=== PATIENT | male | born 1955 | race Caucasian/White ===

== ENCOUNTER → 2019-04-28 | Outpatient (CLI) | payer MEDICARE, OTHER ==
[~2019-04-28] MED LIST: CATHETER FLUSH 10 ML SYR IV PRN; REGADENOSON 0.4 MG/5 ML SYR (LEXISCAN) IV ONE
[2019-04-28 09:08] VITALS: BP 128/84
[2019-04-28 09:10] VITALS: BP 115/83
--- NOTE | 2019-04-30 13:49 | Cardiology Stress Test Report ---
Stress Test Report Type of NM Stress Test: Test Type: LEXISCAN 0.4MG/5ML Date of Procedure/Referring: Date of Procedure: Apr 28, 2019 PCP Soheila Davis MD Admitting Physician Jake Jolley MD Indications: Wide-complex tachycardia Baseline Heart Rate: 82 Baseline Blood Pressure: Blood Pressure Systolic: 115 Blood Pressure Diastolic: 83 Baseline EKG: Baseline EKG: sinus rhythm Summary & Conclusion: Summary: The patient was brought to the stress lab after informed consent was taken. Stress test was performed according to the Lexiscan protocol. 0.4 mg of IV Lexiscan was given. Low-grade exercise was performed. Baseline EKG showed sinus rhythm at 82 BPM. Initial blood pressure was 128/84 mmHg. Maximum heart rate was 98 bpm and blood pressure 118/81 mmHg. Patient did not have any chest pain, arrhythmias or ST segment changes during the stress test. 10.44 mCi of Myoview were given for rest imaging and 30.6 mCi of Myoview given for stress imaging. Transient ischemic dilatation score 1.07, EF 48 percent. Normal wall motion. Normal myocardial perfusion imaging during rest and stress. Conclusion: Pharmacological stress test was negative for ischemia. Normal LV function with no wall motion abnormalities. Normal myocardial perfusion imaging during rest and stress. Soheila DAVIS MD Apr 30, 2019 13:49
== END ==
LOC: CARD 07:55
PROVIDERS: ATTEND Internal Medicine Interventional Cardiology
DX: I47.2 Ventricular tachycardia (principal); E78.2 Mixed hyperlipidemia
CPT/HCPCS: 78452; 93017

== ENCOUNTER 2021-05-30 05:43 | Outpatient (CLI) | payer MEDICARE, OTHER ==
[~2021-05-30] VITALS: Ht 185.4 cm; Wt 87.4 kg
== END 2021-05-31 15:31 | disposition home or self-care (01) ==
LOC: PREOP 05:43
PROVIDERS: ATTEND Surgery
DX: Z01.818 Encounter for other preprocedural examination (principal)

== ENCOUNTER 2021-06-17 05:37 | Outpatient (CLI) | payer MEDICARE ==
[~2021-06-17] VITALS: Ht 185.4 cm; Wt 87.4 kg
[2021-06-18] MEDS ORDERED: OMEP20CA18 PO (10:32)
[2021-06-18] MEDS ORDERED: LORA10TA7 PO (10:32)
[2021-06-18] MEDS ORDERED: OFLO5DRO3 OP (10:32)
[2021-06-18] MEDS ORDERED: ATOR10TA66 PO (10:32)
[2021-06-18] MEDS ORDERED: TIZA2CAP9 PO (10:32)
[2021-06-18] MEDS ORDERED: METO50TA7 PO (10:32)
[2021-06-18] MEDS ORDERED: IBUP-1780 PO (10:32)
[2021-06-18] MEDS ORDERED: ZOLP10TA PO (10:32)
[2021-06-18] MEDS ORDERED: ASPI-808 PO (10:32)
== END 2021-06-18 12:26 | disposition home or self-care (01) ==
LOC: PREOP 05:37
PROVIDERS: ATTEND Surgery
DX: Z01.818 Encounter for other preprocedural examination (principal)

== ENCOUNTER 2021-06-24 08:29 | Day surgery (SDC) | payer MEDICARE, OTHER ==
[~2021-06-24] VITALS: Ht 185.4 cm; Wt 87.4 kg
[~2021-06-24 08:29] MED LIST changes: +ASPI-808 PO; +ATOR10TA66 PO; -CATHETER FLUSH 10 ML SYR IV PRN; +IBUP-1780 PO; +LORA10TA7 PO; +METO50TA7 PO; +OFLO5DRO3 OP; +OMEP20CA18 PO; -REGADENOSON 0.4 MG/5 ML SYR (LEXISCAN) IV ONE; +TIZA2CAP9 PO; +ZOLP10TA PO
[2021-06-24 08:40] VITALS: BP 135/88
[2021-06-24] MEDS ORDERED: LACTATED RINGERS 1,000 ML IV STA (08:49)
[2021-06-24] MEDS ORDERED: LACTATED RINGERS 1,000 ML IV ONE (08:55)
[2021-06-24] MEDS ORDERED: meTOprolol 5 MG/5 ML (LOPRESSOR) VIAL IV ONE (09:15)
[2021-06-24] MEDS ORDERED: FAMOTIDINE 20MG/2ML IV (PEPCID) IV ONE (09:15)
[2021-06-24] MEDS ORDERED: meTOprolol 5 MG/5 ML (LOPRESSOR) VIAL ONE (09:24)
[2021-06-24] MEDS ORDERED: FAMOTIDINE 20MG/2ML IV (PEPCID) ONE (09:25)
[2021-06-24] MEDS ORDERED: PROPOFOL INJECTION 50 ML IV ONE (09:31)
[2021-06-24] MEDS ORDERED: MIDAZOLAM 2 MG/2 ML (VERSED) VIAL ONE (09:31)
--- NOTE | 2021-06-24 10:17 | Progress Note-Post Operative ---
Post-Operative Progess Note Surgeon (s)/Data Designer (s) Surgeon JOEY PIERRE DO Data Designer: Bro Sandhu MSIII Pre-Operative Diagnosis + Cologuard Post-Operative Diagnosis Polyp Int hemorrhoids Procedure & Operative Findings Date of Procedure 06/24/21 Procedure Performed/Findings Colon with hot bx PROCEDURE NOTE: After informed consent was obtained, the patient was brought to the endoscopy suite, placed in bed in left lateral decubitus position. He was administered IV sedation by the ORNAMENTAL IRON ERECTOR who then monitored his vitals the entire time, heart rate, blood pressure and pulse ox and the scope was inserted, pushed all the way to about 150 cm and pushed into the cecum. Once there took a picture of appendiceal orifice and noted the ileo-cecal valve. I also found a small flat polyp, that I elected to remove with hot biopsy; took two bites to get all of it. Then slowly withdrew the scope insufflating to look circumferentially at the sánchez starting in the cecum, up the ascending colon to the hepatic flexure, then down the transverse colon, splenic flexure, into the descending colon and down into the sigmoid and then into the rectal vault and retroflexed the scope. Took picture of the internal hemorrhoids. The patient tolerated the procedure. He was recovered in endoscopy suite. Anesthesia Type IV sedation by ORNAMENTAL IRON ERECTOR Estimated Blood Loss Estimated blood loss (mL): scant Specimens/Packing Specimens Removed cecal polyp JOEY PIERRE DO Jun 24, 2021 10:17
--- NOTE | 2021-06-24 10:18 | Endoscopy Discharge Instruct ---
Endo Procedure/Findings Findings 1.: Polyp 2.: Internal Hemorrhoids Discharge Instructions - Activity: You might feel a little sleepy until tomorrow. This is due to the medicine you received to relax you. Until tomorrow, you should: NOT drive a car, operate machinery or power tools. NOT drink any alcoholic beverages. NOT make any important decisions or sign importortant papers. Do not return to work until tomorrow, unless otherwise instructed. Resume previous activities tomorrow. Diet: Start by taking liquids. If you tolerate liquids, advance to solid food. 1.: Colonscopy in 5 years Notify Physician - If you experience excessive bleeding, unusual abdominal pain, fever, or chest pain, contact your doctor immediately. JOEY PIERRE DO Jun 24, 2021 10:18
[2021-06-24 10:20] VITALS: BP 126/71
[2021-06-24 10:25] VITALS: BP 106/57
[2021-06-24 10:35] VITALS: BP 106/57
[2021-06-24 10:58] VITALS: BP 133/58
[2021-06-24 11:00] VITALS: BP 133/58
--- NOTE | 2021-06-24 12:51 | Anesthesia-General Post-Op ---
MAC Patient Condition Mental Status/LOC: Same as Preop Cardiovascular: Satisfactory Nausea/Vomiting: Absent Respiratory: Satisfactory Pain: Controlled Complications: Absent Post Op Complications Complications None Follow Up Care/Instructions Patient Instructions None needed. Anesthesiology Discharge Order Discharge Order Patient is doing well, no complaints, stable vital signs, no apparent adverse anesthesia problems. No complications reported per nursing. NAWAF SOLIMAN CRNA Jun 24, 2021 12:51
== END 2021-06-24 11:00 | disposition home or self-care (01) ==
LOC: ENDO 08:29
PROVIDERS: ATTEND Surgery
DX: D12.0 Benign neoplasm of cecum (principal); K64.8 Other hemorrhoids; I10 Essential (primary) hypertension; E78.5 Hyperlipidemia, unspecified; F41.9 Anxiety disorder, unspecified; K21.9 Gastro-esophageal reflux disease without esophagitis; I34.1 Nonrheumatic mitral (valve) prolapse; Z79.82 Long term (current) use of aspirin; Z79.899 Other long term (current) drug therapy

== ENCOUNTER → 2021-11-28 | Outpatient (CLI) | payer MEDICARE | LOC: CARDFS 14:47 | PROVIDERS: ATTEND Internal Medicine Cardiovascular Disease | DX: I08.0 Rheumatic disorders of both mitral and aortic valves (principal); I10 Essential (primary) hypertension; I25.10 Atherosclerotic heart disease of native coronary artery without angina pectoris | CPT/HCPCS: 93306 ==

== ENCOUNTER → 2022-02-05 | Outpatient (CLI) | payer MEDICARE ==
[2022-02-05 10:23] VITALS: BP 136/80
== END ==
LOC: CARD 10:30
PROVIDERS: ATTEND Internal Medicine Cardiovascular Disease
DX: I10 Essential (primary) hypertension (principal); I25.10 Atherosclerotic heart disease of native coronary artery without angina pectoris